=== PATIENT | male | born 1955 | race Caucasian/White ===

== ENCOUNTER 2019-02-09 18:00 | Inpatient (IN) | payer OTHER ==
[~2019-02-09] VITALS: Ht 193 cm; Wt 117.0 kg
[2019-02-09 21:48] VITALS: BP 134/90
[2019-02-10 00:45] VITALS: BP 139/95
[2019-02-10 03:56] LABS: microscopic required? NO
[2019-02-10 04:01] LABS: UA SPECIFIC GRAVITY >=1.030 (1.005-1.035); urine erythrocyte NEGATIVE (NEGATIVE)
[2019-02-10 06:00] LABS: AMPHETAMINE QUAL UR NONE DETECTED (See below)
[2019-02-10 06:29] LABS: CALCIUM 7.8 mg/dL (8.5-10.1); CARBON DIOXIDE 29.4 mmol/L (21-32); CREATININE SERUM 1.3 mg/dL (0.7-1.3); MAGNESIUM 1.8 mg/dL (1.8-2.4); PHOSPHOROUS 3.2 mg/dL (2.5-4.9); POTASSIUM SERUM 4.2 mmol/L (3.5-5.1)
[2019-02-10 06:56] LABS: BASOPHIL % 0.4 % (0-2); PLATELET COUNT 228 x10^3mcL (130-400); RED CELL DISTRIBUTION WIDTH 12.9 % (11.5-14.5)
[2019-02-10 08:06] VITALS: BP 140/90
[2019-02-10 12:02] VITALS: BP 149/96
[2019-02-10] MEDS ORDERED: GOOD SENSE OMEP20 MG PO (12:45)
[2019-02-10] MEDS ORDERED: FLOMAX0.4 MG PO (12:45)
[2019-02-10] MEDS ORDERED: SIMVASTATIN20 M1 PO (12:46)
[2019-02-10] MEDS ORDERED: NOR5 PO (12:47)
[2019-02-10] MEDS ORDERED: GABAPENTIN400 M1 PO (12:49)
[2019-02-10] MEDS ORDERED: ELIQUIS5 MG PO (12:50)
[2019-02-10] MEDS ORDERED: MONTELUKAST SOD10 M1 PO (12:51)
[2019-02-10] MEDS ORDERED: ZES20 PO (12:52)
[2019-02-10] MEDS ORDERED: TOPROL XL25 MG PO (12:52)
[2019-02-10] MEDS ORDERED: GOOD SENSE ASPI81 M3 PO (12:53)
[2019-02-10 16:50] VITALS: BP 143/88
[2019-02-10 19:55] VITALS: BP 148/101
[2019-02-11 05:06] VITALS: BP 134/93
[2019-02-11 06:47] LABS: BASOPHIL % 0.3 % (0-2); PLATELET COUNT 232 x10^3mcL (130-400); RED CELL DISTRIBUTION WIDTH 12.7 % (11.5-14.5)
[2019-02-11 07:01] LABS: CARBON DIOXIDE 26.7 mmol/L (21-32); CHLORIDE SERUM 106 mmol/L (98-107); CREATININE SERUM 1.1 mg/dL (0.7-1.3); GFR1 > 60 mL/min; GLUCOSE SERUM 186 mg/dL (74-106); POTASSIUM SERUM 4.4 mmol/L (3.5-5.1); SODIUM SERUM 140 mmol/L (136-145)
[2019-02-11 16:23] VITALS: BP 145/89
[2019-02-11 20:41] VITALS: BP 127/74
[2019-02-12 04:58] VITALS: BP 143/72
[2019-02-12 06:37] LABS: BASOPHIL % 0.1 % (0-2); PLATELET COUNT 220 x10^3mcL (130-400); RED CELL DISTRIBUTION WIDTH 13.9 % (11.5-14.5)
[2019-02-12 06:59] LABS: CALCIUM 7.9 mg/dL (8.5-10.1); CARBON DIOXIDE 24.6 mmol/L (21-32); CHLORIDE SERUM 106 mmol/L (98-107); CREATININE SERUM 1.2 mg/dL (0.7-1.3); GFR1 > 60 mL/min; GLUCOSE SERUM 165 mg/dL (74-106); POTASSIUM SERUM 4.1 mmol/L (3.5-5.1); SODIUM SERUM 140 mmol/L (136-145)
[2019-02-12 07:44] VITALS: BP 137/86
[2019-02-12 16:36] VITALS: BP 111/43
[2019-02-12 16:39] VITALS: BP 140/90
[2019-02-12 21:23] VITALS: BP 131/82
[2019-02-13 05:10] VITALS: BP 138/85
[2019-02-13 06:43] LABS: BASOPHIL % 0.2 % (0-2); CALCIUM 8.1 mg/dL (8.5-10.1); CARBON DIOXIDE 24.6 mmol/L (21-32); CHLORIDE SERUM 106 mmol/L (98-107); CREATININE SERUM 1.1 mg/dL (0.7-1.3); GFR1 > 60 mL/min; GLUCOSE SERUM 182 mg/dL (74-106); PLATELET COUNT 229 x10^3mcL (130-400); POTASSIUM SERUM 4.3 mmol/L (3.5-5.1); RED CELL DISTRIBUTION WIDTH 13.9 % (11.5-14.5); SODIUM SERUM 139 mmol/L (136-145)
[2019-02-13 07:35] VITALS: BP 131/82
[2019-02-13 18:03] VITALS: BP 132/88
[2019-02-25 13:49] VITALS: Ht 193 cm; Wt 117.0 kg
== END 2019-02-13 18:34 | DRG 494 ==
LOC: ED 18:00 → MU 21:04
PROVIDERS: Internal Medicine; Neuromusculoskeletal Medicine, Sports Medicine; ADMIT Internal Medicine
PROC: 0QSG04Z Reposition Right Tibia with Internal Fixation Device, Open Approach (ICD-10-PCS; 2019-02-11)
PROC: 0QSJ04Z Reposition Right Fibula with Internal Fixation Device, Open Approach (ICD-10-PCS; principal; 2019-02-11 08:00)
DX: S82.851B Displaced trimalleolar fracture of right lower leg, initial encounter for open fracture type I or II (principal); I10 Essential (primary) hypertension; E11.42 Type 2 diabetes mellitus with diabetic polyneuropathy; Z79.4 Long term (current) use of insulin; Z79.01 Long term (current) use of anticoagulants; Z79.82 Long term (current) use of aspirin; W17.2XXA Fall into hole, initial encounter; Y92.017 Garden or yard in single-family (private) house as the place of occurrence of the external cause
CPT/HCPCS: 82962; 83880; 90658; 97116-GP; 97530-GP; C1713; G0378; J0690; J1170; J1644; J2250; J2270; J2405; J2704; J3010; J3490; J7030; Q0092